=== PATIENT | male | born 1990 | race Caucasian/White ===

== ENCOUNTER 2024-02-29 22:54 | Inpatient (IN) | payer OTHER, MEDICAID ==
[~2024-02-29] VITALS: Ht 182 cm; Wt 182.3 kg
[2024-03-01] VITALS (28 sets, daily range): BP systolic 158–173; BP diastolic 88–99; PULSE 98–108; RESP 17–43; TEMP 99.6–100; O2SAT 92–99
[2024-03-01] MEDS ORDERED: HETASTARCH/NORMAL SALINE 500 ML PLAST..BAG IV ONE (00:45)
[2024-03-01 02:47] LABS: BG BASE EXCESS -8.7 mmol/L (-2.0-3.0); BG CARBOXYHEMOGLOBIN 0.3 % (0.5-1.5); BG DEOXYHEMOGLOBIN 0.7 % (0.0-5.0); BG FRACTION INSPIRED OXYGEN 100; BG HCO3 ACT 16.9 mmol/L (21.0-28.0); BG METHEMOGLOBIN 0.3 % (0.5-1.5); BG OXYGEN SATURATION 99.3 % (94.0-98.0); BG OXYHEMOGLOBIN 98.7 % (94.0-98.0); BG PCO2 34.9 mmHg (35.0-48.0); BG PH 7.302 (7.350-7.450); BG PO2 170.7 mmHg (83.0-108.0); BG SAMPLE SITE ALINE; BG TOTAL HEMOGLOBIN 8.4 g/dL (13.5-17.5); BG VENT MODE VENT - P/C
[2024-03-01] MEDS: DOBUTAMINE 250MG PREMIX 250 ML IV SCH (03:18)
[2024-03-01] MEDS: VASOPRESSIN 20 UNIT in SODIUM CHLORIDE 0.9% 99 ML IV PRN (03:20)
[2024-03-01 03:24] LABS: BASOPHILS % 0.3 % (0.0-2.0); EOSINOPHILS % 0.4 % (0.0-5.0); HEMATOCRIT. 27.9 % (42.0-52.0); LYMPHOCYTES % 9.7 % (20.0-50.0); MEAN CORPUSCULAR HEMOGLOBIN 29.5 pg (28.0-32.0); MEAN CORPUSCULAR HGB CONC 32.3 g/dL (31.0-37.0); MEAN CORPUSCULAR VOLUME 91.5 fL (80.0-94.0); MEAN PLATELET VOLUME 9.2 fl (7.4-10.4); MONOCYTES % 7.8 % (2.0-8.0); NEUTROPHILS % 81.8 % (40.0-76.0); PLATELET 209 x1000/uL (130-400); RED BLOOD CELL COUNT 3.05 mill/uL (4.7-6.1); RED CELL DISTRIBUTION WIDTH 15.9 % (11.6-14.6); WHITE BLOOD COUNT 12.2 x1000/uL (4.5-11.0)
[2024-03-01 03:31] LABS: INR 1.1; PARTIAL THROMBOPLASTIN TIME 37.4 sec (23.4-31.0); PROTHROMBIN TIME 11.7 sec (9.6-11.0)
[2024-03-01 03:32] LABS: CHLORIDE 113 mEq/L (98-107); POTASSIUM 5.3 mEq/L (3.5-5.1); SODIUM 145 mEq/L (136-145)
[2024-03-01 03:33] LABS: CALCIUM 9.2 mg/dL (8.7-10.4); CARBON DIOXIDE 22 mEq/L (21-32)
[2024-03-01 03:38] LABS: GLUCOSE 88 mg/dL (70-105); UREA NITROGEN BLOOD 81 mg/dL (9-23)
[2024-03-01 03:39] LABS: AMYLASE 94 IU/L (30-118); CREATINE KINASE MB FRACTION 0.7 ng/mL (0.5-3.6); LACTATE DEHYDROGENASE 425 IU/L (120-246)
[2024-03-01 03:40] LABS: ALANINE AMINOTRANSFERASE 51 IU/L (10-49); ALBUMIN 3.4 g/dL (3.2-4.8); ASPARTATE AMINOTRANSFERASE 44 IU/L (<34); BILIRUBIN DIRECT 0.4 mg/dL (<=3.0); PHOSPHORUS 7.6 mg/dL (2.5-4.9)
[2024-03-01 03:41] LABS: BILIRUBIN TOTAL 0.7 mg/dL (0.1-1.0); PROTEIN TOTAL 6.4 g/dL (6.0-8.3)
[2024-03-01 04:08] LABS: CREATININE 8.8 mg/dL (0.6-1.3); TROPONIN I HIGH SENSITIVITY 74 ng/L (3.0-53)
[2024-03-01] MEDS: METHYLPREDNISOLONE SOD SUCC 2,000 MG in DEXT 5% WATER 100 ML IV NR (04:12)
[2024-03-01] MEDS: ALBUMIN HUMAN 25GM/500ML (5%) IV NR (04:41)
[2024-03-01 05:05] LABS: CLARITY URINE CLOUDY (CLEAR); COLOR URINE YELLOW (YELLOW); GLUCOSE URINE NEGATIVE (NEGATIVE); KETONES URINE NEGATIVE (NEGATIVE); LEUKOCYTE ESTERASE URINE NEGATIVE (NEGATIVE); NITRITE URINE NEGATIVE (NEGATIVE); OCCULT BLOOD URINE 3+ (NEGATIVE); PROTEIN URINE 2+ (NEGATIVE); SPECIFIC GRAVITY URINE 1.014 (1.005-1.030); UROBILINOGEN URINE 0.2 E.U./dL (0.2-1.0)
[2024-03-01] MEDS: SODIUM CHLORIDE 0.9% IV NR (05:20)
[2024-03-01] MEDS: THIAMINE HCL IV NR (05:20)
[2024-03-01] MEDS: SODIUM BICARBONATE 8.4% 50MEQ/50ML SYR IV NR ×2 (05:20→08:18)
[2024-03-01] MEDS: SODIUM ZIRCONIUM CYCLOSILICATE 10GM/PACKET PO SCH (05:38)
[2024-03-01 05:51] LABS: SQUAMOUS EPITHELIAL CELL URINE FEW /lpf (RARE/1+)
[2024-03-01 05:54] LABS: BACTERIA URINE NONE SEEN; RBC URINE 0-2 /hpf (0-2)
[2024-03-01 06:25] LABS: BG BASE EXCESS -5.9 mmol/L (-2.0-3.0); BG CARBOXYHEMOGLOBIN 0.3 % (0.5-1.5); BG DEOXYHEMOGLOBIN 1.3 % (0.0-5.0); BG FRACTION INSPIRED OXYGEN 100; BG HCO3 ACT 18.9 mmol/L (21.0-28.0); BG METHEMOGLOBIN 0.3 % (0.5-1.5); BG OXYGEN SATURATION 98.7 % (94.0-98.0); BG OXYHEMOGLOBIN 98.1 % (94.0-98.0); BG PCO2 34.4 mmHg (35.0-48.0); BG PH 7.357 (7.350-7.450); BG PO2 120.5 mmHg (83.0-108.0); BG SAMPLE SITE ALINE; BG TOTAL HEMOGLOBIN 9.8 g/dL (13.5-17.5); BG VENT MODE VENT - APRV
[2024-03-01] MEDS: LINEZOLID 600 MG PREMIX 300 ML IV SCH (06:25)
[2024-03-01] MEDS: METOLAZONE 10MG TABLET PO NR (06:25)
[2024-03-01] MEDS: FUROSEMIDE 100MG/10ML VIAL IVP NR (06:25)
[2024-03-01] MEDS: THIAMINE HCL 100 MG in SODIUM CHLORIDE 0.9% 49 ML IV SCH (06:26)
[2024-03-01] MEDS: PIPERACILLIN/TAZO 3.375G/50ML 50 ML IV SCH (06:50)
[2024-03-01] MEDS: SODIUM BICARBONATE 8.4% 50MEQ/50ML SYR IV STA (06:55)
[2024-03-01] MEDS: FAMOTIDINE 20MG/2ML VIAL IV SCH (08:18)
[2024-03-01] MEDS: METHYLPREDNISOLONE SOD SUCC 500 MG in DEXT 5% WATER 100 ML IV SCH (09:00)
[2024-03-01 09:53] LABS: BG BASE EXCESS -0.6 mmol/L (-2.0-3.0); BG CARBOXYHEMOGLOBIN 0.3 % (0.5-1.5); BG DEOXYHEMOGLOBIN 1.6 % (0.0-5.0); BG HCO3 ACT 24.6 mmol/L (21.0-28.0); BG METHEMOGLOBIN 0.3 % (0.5-1.5); BG OXYGEN SATURATION 98.4 % (94.0-98.0); BG OXYHEMOGLOBIN 97.8 % (94.0-98.0); BG PH 7.376 (7.350-7.450); BG PO2 120.2 mmHg (83.0-108.0); BG SAMPLE SITE ALINE; BG TOTAL HEMOGLOBIN 10.9 g/dL (13.5-17.5)
[2024-03-01 12:19] LABS: BG BASE EXCESS -2.3 mmol/L (-2.0-3.0); BG CARBOXYHEMOGLOBIN 0.2 % (0.5-1.5); BG DEOXYHEMOGLOBIN 0.6 % (0.0-5.0); BG FRACTION INSPIRED OXYGEN 100; BG HCO3 ACT 21.9 mmol/L (21.0-28.0); BG METHEMOGLOBIN 0.3 % (0.5-1.5); BG OXYGEN SATURATION 99.4 % (94.0-98.0); BG OXYHEMOGLOBIN 98.9 % (94.0-98.0); BG PCO2 35.2 mmHg (35.0-48.0); BG PH 7.411 (7.350-7.450); BG PO2 189.6 mmHg (83.0-108.0); BG SAMPLE SITE ALINE; BG VENT MODE VENT - APRV
[2024-03-01 12:28] LABS: HEMATOCRIT. 30.7 % (42.0-52.0); HEMOGLOBIN. 9.9 g/dL (14.0-18.0); MEAN CORPUSCULAR HEMOGLOBIN 29.1 pg (28.0-32.0); MEAN CORPUSCULAR HGB CONC 32.3 g/dL (31.0-37.0); MEAN CORPUSCULAR VOLUME 90.3 fL (80.0-94.0); MEAN PLATELET VOLUME 9.6 fl (7.4-10.4); PLATELET 224 x1000/uL (130-400); RED CELL DISTRIBUTION WIDTH 16.1 % (11.6-14.6); WHITE BLOOD COUNT 14.5 x1000/uL (4.5-11.0)
[2024-03-01 12:30] LABS: INR 1.1; PARTIAL THROMBOPLASTIN TIME 33.9 sec (23.4-31.0); PROTHROMBIN TIME 11.9 sec (9.6-11.0)
[2024-03-01 12:42] LABS: DIFFERENTIAL COMMENT 1
[2024-03-01 12:46] LABS: CARBON DIOXIDE 23 mEq/L (21-32); CHLORIDE 108 mEq/L (98-107); POTASSIUM 4.6 mEq/L (3.5-5.1); SODIUM 146 mEq/L (136-145)
[2024-03-01 12:47] LABS: CALCIUM 9.5 mg/dL (8.7-10.4)
[2024-03-01 12:52] LABS: BILIRUBIN TOTAL 0.9 mg/dL (0.1-1.0); GLUCOSE 194 mg/dL (70-105); UREA NITROGEN BLOOD 92 mg/dL (9-23)
[2024-03-01 12:53] LABS: ALANINE AMINOTRANSFERASE 53 IU/L (10-49); AMYLASE 100 IU/L (30-118); ASPARTATE AMINOTRANSFERASE 45 IU/L (<34); CREATINE KINASE MB FRACTION 0.8 ng/mL (0.5-3.6); LACTATE DEHYDROGENASE 547 IU/L (120-246); LACTIC ACID 2.1 mmol/L (0.4-2.0); PROTEIN TOTAL 7.3 g/dL (6.0-8.3)
[2024-03-01 12:54] LABS: ALBUMIN 3.9 g/dL (3.2-4.8); BILIRUBIN DIRECT 0.5 mg/dL (<=3.0); PHOSPHORUS 7.5 mg/dL (2.5-4.9)
[2024-03-01 13:17] LABS: CREATININE 8.6 mg/dL (0.6-1.3)
[2024-03-01 13:18] LABS: TROPONIN I HIGH SENSITIVITY 55 ng/L (3.0-53)
[2024-03-01 13:35] LABS: ANISOCYTOSIS 1+; PLATELET ESTIMATE NORMAL
[2024-03-01 14:01] LABS: BG BASE EXCESS -3.9 mmol/L (-2.0-3.0); BG CARBOXYHEMOGLOBIN 0.1 % (0.5-1.5); BG FRACTION INSPIRED OXYGEN 75; BG HCO3 ACT 23.3 mmol/L (21.0-28.0); BG OXYHEMOGLOBIN 97.9 % (94.0-98.0); BG PCO2 52.2 mmHg (35.0-48.0); BG PH 7.267 (7.350-7.450); BG PO2 123.1 mmHg (83.0-108.0); BG SAMPLE SITE ALINE; BG TOTAL HEMOGLOBIN 10.6 g/dL (13.5-17.5); BG VENT MODE VENT - APRV
== END 2024-03-01 16:35 | DRG 192 ==
LOC: 3WST 22:54 → CVICU 23:45
PROVIDERS: ADMIT Internal Medicine; ATTEND Internal Medicine
PROC: 4A023N8 Measurement of Cardiac Sampling and Pressure, Bilateral, Percutaneous Approach (ICD-10-PCS; principal; 2024-03-01)
PROC: B24BZZ4 Ultrasonography of Heart with Aorta, Transesophageal (ICD-10-PCS; 2024-03-01)
PROC: 03HY32Z Insertion of Monitoring Device into Upper Artery, Percutaneous Approach (ICD-10-PCS; 2024-03-01)
PROC: B211YZZ Fluoroscopy of Multiple Coronary Arteries using Other Contrast (ICD-10-PCS; 2024-03-01)
PROC: B215YZZ Fluoroscopy of Left Heart using Other Contrast (ICD-10-PCS; 2024-03-01)
DX: I27.20 Pulmonary hypertension, unspecified (principal); G93.40 Encephalopathy, unspecified; J18.9 Pneumonia, unspecified organism; Z68.43 Body mass index [BMI] 50.0-59.9, adult; E66.01 Morbid (severe) obesity due to excess calories; E87.70 Fluid overload, unspecified
CPT/HCPCS: 36415; 36600; 71045; 80053; 81003; 82150; 82248; 82375; 82553; 82805; 82977; 83605; 83615; 83735; 84100; 84484; 85025; 86900; 87070; 93005; 93312; 93460; C1769; C1887; C1893; J1250; J1644; J1940; J2020; J2543; J2930; J3411; J3490; J7050; J7060; P9041; Q9967